=== PATIENT | female | born 1945 | race Two or more races ===

== ENCOUNTER 2020-06-30 13:39 | Emergency (ER) | payer MEDICARE, OTHER ==
--- NOTE | 2020-06-30 14:46 | ER Document Report ---
ED Medical Screen (RME) - General Chief Complaint: Palpitations Stated Complaint: HEART PALPATATIONS/ WEAKNESS Time Seen by Provider: 06/30/20 14:38 Primary Care Provider: FRANK MARR MD [Primary Care Provider] - Follow up as needed Mode of Arrival: Ambulatory Information source: Patient Notes: 75-year-old female presented to ED for heart fluttering palpitations no cough or fever. She states after the palpitations she became very weak and tired. Patient is alert oriented respirations regular nonlabored speaking in full sentences. She states she does have a history of high blood pressure otherwise has a healthy history. Lungs are clear at this time pulse is normal. She states her blood pressure runs usually 148/80 and it was a little low this mor armida. Get blood urine chest x-ray and EKG and have her seen by another provider. I have greeted and performed a rapid initial assessment of this patient. A comprehensive ED assessment and evaluation of the patient, analysis of test results and completion of medical decision making process will be conducted by an additional ED providers. - Related Data Allergies/Adverse Reactions: No Known Allergies Allergy (Verified 06/30/20 14:44) Physical Exam - Vital signs Vitals: Temp Pulse Resp BP Pulse Ox 97.8 F 54 L 20 143/71 H 100 06/30/20 13:53 06/30/20 13:53 06/30/20 13:53 06/30/20 13:53 06/30/20 13:53 Course - Vital Signs Vital signs: Temp Pulse Resp BP Pulse Ox 97.8 F 54 L 20 143/71 H 100 06/30/20 13:53 06/30/20 13:53 06/30/20 13:53 06/30/20 13:53 06/30/20 13:53 Doctor's Discharge - Discharge Referrals: FRANK MARR MD [Primary Care Provider] - Follow up as needed
--- NOTE | 2020-06-30 15:34 | RADIOLOGY REPORT (SQ) ---
EXAM DESCRIPTION: CHEST 2 VIEWS IMAGES COMPLETED DATE/TIME: 06/30/2020 3:15 pm REASON FOR STUDY: chest pain COMPARISON: None. EXAM PARAMETERS: NUMBER OF VIEWS: two views TECHNIQUE: Digital Frontal and Lateral radiographic views of the chest acquired. RADIATION DOSE: NA LIMITATIONS: none FINDINGS: LUNGS AND PLEURA: No opacities, masses or pneumothorax. No pleural effusion. MEDIASTINUM AND HILAR STRUCTURES: No masses or contour abnormalities. HEART AND VASCULAR STRUCTURES: Heart normal size. No evidence for failure. BONES: No acute findings. HARDWARE: None in the chest. OTHER: No other significant finding. IMPRESSION: NO ACUTE RADIOGRAPHIC FINDING IN THE CHEST. TECHNICAL DOCUMENTATION: JOB ID: [id number] 2010 [employer]- All Rights Reserved Reading location - IP/workstation name: [email or web address]
[2020-06-30 15:35] LABS: ABSOLUTE EOSINOPHILS # (AUTO) 0.2 10^3/uL (0.0-0.6); ABSOLUTE LYMPHOCYTES (AUTO) 1.9 10^3/uL (0.5-4.7); ABSOLUTE MONOCYTES (AUTO) 0.5 10^3/uL (0.1-1.4); ABSOLUTE NEUT (AUTO) 4.5 10^3/uL (1.7-8.2); BASOPHILS % (AUTO) 0.3 % (0-2); EOSINOPHILS % (AUTO) 2.8 % (0-6); HEMATOCRIT 41.1 % (36.0-47.0); HEMOGLOBIN 13.5 g/dL (12.0-15.5); LYMPHOCYTES % (AUTO) 26.3 % (13-45); MEAN CORPUSCULAR HEMOGLOBIN 29.5 pg (27.0-33.4); MEAN CORPUSCULAR HGB CONC 32.9 g/dL (32.0-36.0); MEAN CORPUSCULAR VOLUME 90 fl (80-97); MONOCYTES % (AUTO) 7.5 % (3-13); PLATELET COUNT 443 10^3/uL (150-450); RED BLOOD COUNT 4.58 10^6/uL (3.72-5.28); RED CELL DISTRIBUTION WIDTH 14.6 % (11.5-14.0); SEGMENTED NEUTROPHILS % (AUTO) 63.1 % (42-78); TOTAL CELLS COUNTED % (AUTO) 100 %; WHITE BLOOD COUNT 7.1 10^3/uL (4.0-10.5)
[2020-06-30 15:42] LABS: ALKALINE PHOSPHATASE 94 U/L (38-126); ANION GAP 12 (5-19); ASPARTATE AMINO TRANSFERASE 38 U/L (14-36); BILIRUBIN,DIRECT 0.1 mg/dL (0.0-0.4); BILIRUBIN,TOTAL 0.3 mg/dL (0.2-1.3); BLOOD UREA NITROGEN 41 mg/dL (7-20); CALCIUM 10.2 mg/dL (8.4-10.2); CARBON DIOXIDE 23 mmol/L (22-30); CHLORIDE 101 mmol/L (98-107); GLUCOSE 93 mg/dL (75-110); TOTAL PROTEIN 8.6 g/dL (6.3-8.2)
[2020-06-30 15:52] LABS: POTASSIUM 7.5 mmol/L (3.6-5.0)
[2020-06-30] MEDS ORDERED: SODIUM POLYSTYRENE SULFONATE 15 GM/60 ML PO ONE (16:31)
[2020-06-30] MEDS ORDERED: NORMAL SALINE 1000 ML 500 ML IV ONE ×2 (16:31→18:11)
[2020-06-30] MEDS ORDERED: SODIUM BICARBONATE 8.4% INJ 50 MEQ/50 ML DISP.SYRIN IV ONE (16:32)
[2020-06-30] MEDS ORDERED: CALCIUM GLUCONATE 1000 MG/10 ML INJ IV ONE (16:32)
[2020-06-30] MEDS ORDERED: INSULIN REG, HUMAN 100 UNIT/ML 3 ML VIAL (PYX) IV ONE (16:33)
[2020-06-30] MEDS ORDERED: DEXTROSE 50%-WATER 25 GM/50 ML DISP.SYRIN IV ONE (16:33)
--- NOTE | 2020-06-30 16:55 | ER Document Report ---
Entered by JAYLA MCDONALD SCRIBE 06/30/20 1623 Acting as scribe for:AKASH TOVAR MD ED General - General Mode of Arrival: Ambulatory Information source: Patient <AKASH TOVAR - Last Filed: 06/30/20 20:08> <FAY SWIFT JR - Last Filed: 06/30/20 21:02> - General Chief Complaint: Palpitations Stated Complaint: HEART PALPATATIONS/ WEAKNESS Time Seen by Provider: 06/30/20 14:38 Primary Care Provider: FRANK MARR MD [NO LOCAL MD] - Follow up as needed Notes: This 75 year old female patient who permanently resides in [place] comes to visit every two years and she presents to the emergency department today with complaints of heart palpitations. Patient states that she felt like she was feeling this way because of a low potassium so she ate a banana and she took x3 20meq of potassium, she normally only takes one 20meq a day. 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, Hx Orthopedic Surgery - right shoulder <AKASH TOVAR - Last Filed: 06/30/20 20:08> Review of Systems - Review of Systems Constitutional: denies: Chills, Fever EENT: No symptoms reported Cardiovascular: See HPI, Palpitations, Heart racing Respiratory: No symptoms reported Gastrointestinal: No symptoms reported Genitourinary: No symptoms reported Female Genitourinary: No symptoms reported Musculoskeletal: No symptoms reported Skin: No symptoms reported Hematologic/Lymphatic: No symptoms reported Neurological/Psychological: No symptoms reported -: Yes All other systems reviewed and negative <AKASH TOVAR - Last Filed: 06/30/20 20:08> Physical Exam <AKASH TOVAR - Last Filed: 06/30/20 20:08> - Vital signs Vitals: Temp Pulse Resp BP Pulse Ox 97.8 F 54 L 20 143/71 H 100 06/30/20 13:53 06/30/20 13:53 06/30/20 13:53 06/30/20 13:53 06/30/20 13:53 - Notes Notes: Physical Exam: General: Alert, appears well. HEENT: Normocephalic. Atraumatic. PERRL. Extraocular movements intact. Oropharynx clear. Neck: Supple. Non-tender. Respiratory: No respiratory distress. Clear and equal breath sounds bilaterally. Cardiovascular: Regular rate and rhythm. Abdominal: Normal Inspection. Non-tender. No distension. Normal Bowel Sounds. Back: No gross abnormalities. Extremities: Moves all four extremities. Upper extremities: Normal inspection. Normal ROM. Lower extremities: Normal inspection. No edema. Normal ROM. Neurological: Normal cognition. AAOx4. Normal speech. Psychological: Normal affect. Normal Mood. Skin: Warm. Dry. Normal color. (AKASH TOVAR) Course - Laboratory Result Diagrams: 06/30/20 15:00 06/30/20 15:00 - Diagnostic Test Radiology reviewed: Image reviewed, Reports reviewed - Chest x-ray does not show acute radiographic changes. - EKG Interpretation by Or EKG shows normal: Sinus rhythm, [place], Intervals, QRS Complexes, ST-T Waves Rate: Normal - 54 Rhythm: NSR - Transfer of Care Care transferred to following provider: Dr. Swift <AKASH TOVAR - Last Filed: 06/30/20 20:08> - Laboratory Result Diagrams: 06/30/20 15:00 06/30/20 19:11 <FAY SWIFT JR - Last Filed: 06/30/20 21:02> - Re-evaluation Re-evalutation: 06/30/20 17:21 The patient's initial potassium was 7.5, she normally takes one potassium 20 mEq tablet daily because she is taking Lasix 40 mg a day. It is unclear why she is taking the Lasix as she has no peripheral edema and no history of that. Today she was feeling weak and feeling palpitations and thought her potassium was low, so she took 3 of her potassium tablets and ate a banana. The creatinine is 1.01, and the BUN is 41. 06/30/20 18:12 At this time the patient states she feels much better. I will give her another 500 mL normal saline bolus, then repeat her potassium level. (AKASH TOVAR) - Vital Signs Vital signs: Temp Pulse Resp BP Pulse Ox 97.8 F 54 L 14 170/61 H 99 06/30/20 13:53 06/30/20 13:53 06/30/20 20:36 06/30/20 20:36 06/30/20 20:36 - Laboratory Laboratory results interpreted by me: 06/30/20 06/30/20 06/30/20 15:00 15:00 19:11 RDW 14.6 H Sodium 136.3 L Potassium 7.5 H* BUN 41 H 36 H Est GFR (MDRD) Non-Af 53 L Magnesium 2.6 H AST 38 H Total Protein 8.6 H - Transfer of Care Notes: 06/30/20 20:08 A repeat potassium level was drawn sometime in the recent past and the lab now has acknowledged receipt and is repeating the Chem-7. If the potassium is trending downward adequately, the patient should be able to go home and stop taking her potassium supplement and follow-up with her primary care provider. (AKASH TOVAR) Critical Care Note - Critical Care Note Total time excluding time spent on procedures (mins): 30 <AKASH TOVAR - Last Filed: 06/30/20 20:08> <FAY SWIFT JR - Last Filed: 06/30/20 21:02> - Critical Care Note Comments: At least 30 minutes spent evaluating patient talking with her and her daughter about her past history and medications, and figuring out how she developed such severe hyperkalemia. Time was spent putting in emergency orders and getting the nursing staff to act as quickly as possible to get medication started to treat her life-threatening hyperkalemia. (AKASH TOVAR) Dr. Tovar left patient for finalization of second potassium after multiple methods for lowering her potassium were performed. Her potassium was within normal limits by 2044 and patient was discharged from ER. (FAY SWIFT JR) Discharge <AKASH TOVAR - Last Filed: 06/30/20 20:08> <FAY SWIFT JR - Last Filed: 06/30/20 21:02> - Discharge Clinical Impression: Acute hyperkalemia, Palpitations, Weakness Condition: Stable Disposition: HOME, SELF-CARE Additional Instructions: Call personal doctor tomorrow and alert about the hyperkalemia that you came in with the day but upon leaving he had a normal potassium level. Return to ER as needed continue with medications as you routinely do. Try not to take any extra potassium that you are prescribed. Encourage fluids Referrals: FRANK MARR MD [NO LOCAL MD] - Follow up as needed I personally performed the services described in the documentation, reviewed and edited the documentation which was dictated to the scribe in my presence, and it accurately records my words and actions.
--- NOTE | 2020-06-30 19:28 | EKG REPORT ---
SEVERITY:- NORMAL ECG - SINUS RHYTHM : Confirmed by: Chula Aparicio MD 30-Jun-2020 19:27:47
[2020-06-30 20:23] LABS: ANION GAP 8 (5-19); BLOOD UREA NITROGEN 36 mg/dL (7-20); CALCIUM 9.6 mg/dL (8.4-10.2); CARBON DIOXIDE 27 mmol/L (22-30); CHLORIDE 103 mmol/L (98-107); GLUCOSE 96 mg/dL (75-110)
[2020-06-30 20:30] LABS: POTASSIUM 4.8 mmol/L (3.6-5.0)
[2020-06-30 21:11] VITALS: BP 145/88
== END 2020-06-30 21:12 | disposition home or self-care (01) ==
LOC: ER 13:39
DX: E87.5 Hyperkalemia (principal); R00.2 Palpitations; R53.1 Weakness; I10 Essential (primary) hypertension
CPT/HCPCS: 93005; 99285; 96361; 96375; 96365; 36415; 83735; 85025; 80053; 84484; 71046; 93010; J0610; J3490 ×2; A9270 ×2; J7030; J1815